=== PATIENT | female | born 1990 | race Caucasian/White ===

== ENCOUNTER 2017-01-17 11:18 | Emergency (ER) | payer MEDICAID ==
[~2017-01-17] VITALS: Ht 162.6 cm; Wt 62.0 kg
[2017-01-17 11:21] VITALS: Ht 162.6 cm; Wt 62.0 kg
[2017-01-17] MEDS ORDERED: CEPH-443 PO (11:39)
[2017-01-17] MEDS ORDERED: BACTDS PO (11:39)
[2017-01-17] MEDS ORDERED: VALA1000 PO (11:42)
--- NOTE | 2017-01-17 11:51 | ERD ---
ER Documentation Chief Complaint Date/Time DATE: 01/17/17 TIME: 11:47 Chief Complaint LEFT UPPER LIP SORE HPI This is a 26-year-old female presenting to the emergency room complaining of left upper swelling and sore that occurred 3 days ago. Patient states that she thought it was a pimple and started picking at it. Patient thought it could be a cold sore but she states that the swelling has not gone down. She states the pain is moderate in severity. She denies any fevers ROS All systems reviewed and are negative except as per history of present illness. Medications Home Meds Active Scripts Valacyclovir HCl (Valacyclovir) 1,000 Mg Tablet, 2000 MG PO BID for 1 Day, TAB Prov:DELORES COLUNGA-C 01/17/17 Sulfamethoxazole-Trimethoprim* (Bactrim* DS) 800-160 Mg Tab, 1 TAB PO BID for 5 Days, TAB Prov:DELORES COLUNGA-C 01/17/17 Cephalexin* (Keflex*) 500 Mg Capsule, 500 MG PO QID for 7 Days, CAP Prov:DELORES COLUNGA-C 01/17/17 Allergies Allergies: Coded Allergies: No Known Allergy (Unverified , 01/17/17) PMhx/Soc Medical and Surgical Hx: pt denies Medical Hx, pt denies Surgical Hx Hx Alcohol Use: No Hx Substance Use: No Hx Tobacco Use: Yes Smoking Status: Current every day smoker Physical Exam Vitals Vital Signs Date Time Temp Pulse Resp B/P Pulse Ox O2 Delivery O2 Flow Rate FiO2 01/17/17 11:21 98.4 78 18 120/70 98 Physical Exam General: WD/WN, in no apparent distress, non-toxic appearing HENT: NC/AT Eyes: Conjunctiva normal Neck: Supple Pulm: Clear to auscultation, normal labored breathing; no wheezing/rales/ rhonchi heard CV: Good capillary refill GI: Non-distended, no guarding Back: No masses Ext: No clubbing, cyanosis, or edema Neuro: Moves on all fours Skin: scabbed lesion on the left upper lip with swelling 1cm X 1cm Psych: Normal mood Procedures/MDM This is a 26-year-old female presenting to the emergency room complaining of a left upper lesion which is likely infected herpes versus infected sebaceous cyst versus other. Low suspicion for cellulitis. Patient will be empirically treated with Keflex, Bactrim and ganciclovir. I discussed with her to follow- up with her primary care physician. Discussed return to the ER for any worsening symptoms. Patient is stable for discharge Departure Diagnosis: Primary Impression: Abscess Condition: Stable Patient Instructions: Herpes: Caring for Sores, Abscess, Antiobiotic Treatment Only Additional Instructions: FOLLOW UP WITH YOUR PRIMARY CARE PHYSICIAN TOMORROW.Return to this facility if you are not improving as expected. Take all medicines as directed. Return to this facility if you are not improving as expected. DELORES COLUNGA PA-C Jan 17, 2017 11:51
== END 2017-01-17 11:58 | disposition home or self-care (01) ==
LOC: FTE 11:18
DX: K13.0 Diseases of lips (principal); F17.210 Nicotine dependence, cigarettes, uncomplicated
CPT/HCPCS: 99284

== ENCOUNTER 2019-04-28 22:39 | Emergency (ER) | payer MEDICAID, OTHER ==
[~2019-04-28] VITALS: Ht 162.6 cm; Wt 65.6 kg
[~2019-04-28 22:39] MED LIST: BACTDS PO; CEPH-443 PO; IBUP-1542 PO; VALA1000 PO
[2019-04-28 22:41] VITALS: BP 129/78; PULSE 77; RESP 19; Ht 162.6 cm; Wt 65.6 kg
--- NOTE | 2019-04-29 01:23 | ERD ---
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 Patient states she rammed her foot into a fence at the time. Foot is swollen, bruising, abrasion, no deformity, patient is nonambulatory. No chronic medical problems. LMP 1 week ago. ROS All systems reviewed and are negative except as per history of present illness. Medications Home Meds Active Scripts Ibuprofen* (Motrin*) 600 Mg Tab, 600 MG PO Q6, #30 TAB Prov:INDIO SAPP [employer] 04/29/19 valACYclovir HCl (valACYclovir) 1,000 Mg Tablet, 2000 MG PO BID for 1 Day, TAB Prov:DELORES COLUNGA-C 01/17/17 Sulfamethoxazole-Trimethoprim* (Bactrim* DS) 800-160 Mg Tab, 1 TAB PO BID for 5 Days, TAB Prov:DELORES COLUNGA-C 01/17/17 Cephalexin* (Keflex*) 500 Mg Capsule, 500 MG PO QID for 7 Days, CAP Prov:DELORES COLUNGA-C 01/17/17 Allergies Allergies: Coded Allergies: No Known Allergy (Unverified , 01/17/17) PMhx/Soc Medical and Surgical Hx: pt denies Medical Hx, pt denies Surgical Hx Hx Alcohol Use: No Hx Substance Use: No Hx Tobacco Use: Yes Smoking Status: Current every day smoker FmHx Family History: No diabetes, No coronary disease, No other Physical Exam Vitals Vital Signs Date Temp Pulse Resp B/P (MAP) Pulse Ox O2 O2 Flow FiO2 Time Delivery Rate 04/28/19 98.0 77 19 129/78 98 22:41 (95) Physical Exam Const: No acute distress Head: Atraumatic Eyes: Normal Conjunctiva ENT: Normal External Ears, Nose and Mouth. Neck: Full range of motion. No meningismus. No cervical spinal tenderness Resp: Clear to auscultation bilaterally Back: No midline or flank tenderness, no spinal tenderness Ext: No cyanosis, or edema. Left foot: toe #1: +swelling, +bruising, 1 cm abrasion to medial great toe, ltd rom due to pain, sensation intact, cap refill <2 sec,. +point tenderness to metatarsal #1. No 5th metatarsal tenderness, no ankle tenderness. Neur: Awake and alert, clear speech Psych: Normal Mood and Affect Results 24 hrs Current Medications Medications Dose Sig/Leta Start Time Status Last (Trade) Ordered Route PRN Stop Time Admin Dose Reason Admin Ibuprofen 600 mg ONCE ONCE 04/29/19 DC 04/29/19 (Motrin) PO 01:30 01:27 04/29/19 01:31 Bacitracin 1 applic ONCE ONCE 04/29/19 DC (Bacitracin TOP 03:30 Oint (Ud)) 04/29/19 03:31 Procedures/MDM PROCEDURES/MDM DIAGNOSTIC IMAGING: Read by radiologist. Left foot IMPRESSION: Soft tissue swelling overlying a minimally displaced fracture of the mid diaphysis of the proximal phalanx of the first digit. PROCEDURES: Splint Assessment: Neurovascularly intact post splint placement with good fit. -Medications: Ibuprofen Patient tolerated medication well with no adverse reactions. Patient reported improvement in pain. MDM: Patient's extremity symptoms have stabilized while they have been evaluated in the department and are appropriate for outpatient follow up. No evidence of compartment syndrome, neurologic injury, vascular injury, open joint, open fracture, tendon laceration, or foreign body. Patient was placed in ortho shoe with toes 1 & 2 jazz taped and foot supported with RONAK. Patient provided with radiology report and CD with instructions for close follow-up with PMD or ortho. Pt ambulates out of ED demonstrating safe steady crutch gait. DISPOSITION and PLAN: RX:ibuprofen The patient has been discharge home to follow-up with community physician. Departure Diagnosis: Primary Impression: Fractured great toe Encounter type: initial encounter Fracture type: closed Phalanx: distal Fracture alignment: displaced Laterality: left Qualified Codes: S92.422A - Displaced fracture of distal phalanx of left great toe, initial encounter for closed fracture Condition: Stable INDIO SAPP NP Apr 29, 2019 01:23
[2019-04-29] MEDS ORDERED: IBUPROFEN 600 MG TAB PO ONE (01:30)
[2019-04-29] MEDS ORDERED: BACITRACIN 0.9 GM OINT TOP ONE (03:30)
== END 2019-04-29 03:39 | disposition home or self-care (01) ==
LOC: FTE 22:39
DX: S92.422A Displaced fracture of distal phalanx of left great toe, initial encounter for closed fracture (principal); F17.210 Nicotine dependence, cigarettes, uncomplicated; X58.XXXA Exposure to other specified factors, initial encounter; Y92.9 Unspecified place or not applicable
CPT/HCPCS: 73630; L3260; Z7502; Z7610